=== PATIENT | female | born 1980 | race Two or more races ===

== ENCOUNTER 2020-10-06 14:52 | Inpatient (IN) | payer OTHER ==
[~2020-10-06] VITALS: Ht 157.5 cm; Wt 95.3 kg
[2020-10-06] MEDS ORDERED: PRENATAL TABLE1 EAC1 PO (16:14)
[2020-10-06] MEDS ORDERED: ST. JOSEPH ASPI81 M3 PO (16:16)
[2020-10-06] MEDS ORDERED: MAGNESIUM400 M1 PO (16:17)
== END 2020-10-10 15:39 | disposition home or self-care (01) | DRG 806 ==
LOC: LDR 14:52 → SURG-SUITE 14:52 → LDR 10-07 11:26 → SURG-SUITE 10-08 15:58
PROVIDERS: ADMIT Specialist; ATTEND Specialist
PROC: 10E0XZZ Delivery of Products of Conception, External Approach (ICD-10-PCS; principal; 2020-10-06)
PROC: 0W8NXZZ Division of Female Perineum, External Approach (ICD-10-PCS; 2020-10-06)
PROC: 10907ZC Drainage of Amniotic Fluid, Therapeutic from Products of Conception, Via Natural or Artificial Opening (ICD-10-PCS; 2020-10-06)
PROC: 3E0P7VZ Introduction of Hormone into Female Reproductive, Via Natural or Artificial Opening (ICD-10-PCS; 2020-10-06)
PROC: 4A1HXFZ Monitoring of Products of Conception, Cardiac Rhythm, External Approach (ICD-10-PCS; 2020-10-06)
DX: O13.3 Gestational [pregnancy-induced] hypertension without significant proteinuria, third trimester (principal); O41.03X0 Oligohydramnios, third trimester, not applicable or unspecified; Z37.0 Single live birth; Z3A.39 39 weeks gestation of pregnancy; Z20.822 Contact with and (suspected) exposure to COVID-19